=== PATIENT | female | born 1995 | race American Indian/Alaskan Native ===

== ENCOUNTER 2022-05-30 18:13 | Emergency (ER) | payer OTHER ==
[2022-05-31 00:33] VITALS: BP 134/75
[2022-05-31 01:12] LABS: HCG Qualitative,Urine Negative (Negative)
[2022-05-31] MEDS ORDERED: HYDROcodone/ACETAMINOPHEN 5-325 MG TAB PO STA (02:59)
--- NOTE | 2022-05-31 03:46 | XRay Report ---
CHEST 2 VIEWS INDICATION / CLINICAL INFORMATION: wheeze. COMPARISON: None available. FINDINGS: SUPPORT DEVICES: None. HEART / MEDIASTINUM: Heart size and mediastinal contour appear within normal limits. LUNGS / PLEURA: No significant pulmonary or pleural abnormality. No pneumothorax. BONES: No significant osseous abnormality. ADDITIONAL FINDINGS: No significant additional findings. IMPRESSION: 1. No acute traumatic injury involving the chest. No active process. Signer Name: Daniele Payton II, MD Signed: 05/31/2022 3:42 AM Workstation Name: [id number]
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
== END 2022-05-31 05:22 | disposition home or self-care (01) ==
LOC: ED 18:13
DX: R07.9 Chest pain, unspecified (principal); M54.2 Cervicalgia; V89.2XXA Person injured in unspecified motor-vehicle accident, traffic, initial encounter; Y93.89 Activity, other specified; Y92.89 Other specified places as the place of occurrence of the external cause; Y99.8 Other external cause status; Z88.1 Allergy status to other antibiotic agents
CPT/HCPCS: 71046; 72040; 81025; 99283; 99284